=== PATIENT | male | born 1970 | race African-American/Black ===

== ENCOUNTER 2021-03-20 10:19 | Inpatient (IN) | payer OTHER ==
[~2021-03-20] VITALS: Ht 152.4 cm; Wt 136.1 kg
--- NOTE | ~2021-03-20 | EMS ---
[address] [address] EMS Patient Care Report Name: NAREN GONZALEZ Room #: 170-4 ADM IN M.R.#: [id number] Admission: 03/20/21 Attend Phys: Alicja Santoro MD Discharge: Date of : 72 Report #: [id number] THIS REPORT FOR: //name// Report Transmitted: 03/21/2021 14:51 EMS Care Summary [place], [place]/[facility] Incident [id number] @ 03/20/2021 09:52 Incident Location [address] [place] [id number] Patient JOSE GONZALEZ Male, 50 Years 1970 Patient Address Patient History None Reported, Patient Allergies No known allergies, Patient Medications None Reported, Chief Complaint Shortness of breath Disposition Transported No Lights/[place] Dispatch Reason Breathing Problem Transported To [facility] Narrative Arrived on scene to be greeted by our patient opening the front door. Patient stated he had been feeling sick and increasingly short of breath over the previous 7 days. Patient had called EMS due to his increased shortness of breath. Patient had a nonproductive cough. Patient denied any chest pain, n/v, or diarrhea. Patient stated coughing was painful. Patient tachypnic and speaking in 3-4 words sentences upon our arrival. Lung [address] [address] EMS Patient Care Report Name: NAREN GONZALEZ Room #: 170-4 [facility] IN [facility]#: [id number] Admission: 03/20/21 Attend Phys: Alicja Santoro MD Discharge: Date of : 72 Report #: [id number] sounds clear bilaterally. Patient's SPO2 75% on room air. NRB mask at 15lpm applied which was successful in raising patient's SPO2 to 98%. Patient transported and transferred to receiving facility without change in patient condition. Initial Vitals @10:02P: 113,SpO2: 73, @10:09P: 106,R: 22,BP: 150/68,Pain: 0/10,GCS: 15,CO: 4,SpO2: 98,Revised Trauma: 12, @10:02P: 114,R: 22,BP: 174/83,Pain: 0/10,SpO2: 76, Assessments @09:59MENTAL:Place Oriented,Event Oriented,Person Oriented,Time Oriented,SKIN:HEENT:Head/Face: No Abnormalities,Eyes: No Abnormalities,Neck/Airway: No Abnormalities,LUNG SOUNDS:ABDOMEN:PELVIS//GI:No Abnormalities,EXTREMITIES:Left Arm: No Abnormalities,Right Arm: No Abnormalities,Left Leg: No Abnormalities,Right Leg: No Abnormalities,PULSE:NEURO:No Abnormalities, Impression Shortness of breath Procedures @09:59 ALS Assessment Response: UnchangedSucceeded @10:03 Oxygen FlowRate: 15 Device: Non Re-breather Mask (NRB) Response: ImprovedSucceeded Timeline 09:47,Call Received 09:47,Dispatch Notified 09:52,Dispatched 09:52,En Route 09:57,On Scene 09:59,At Patient 09:59,ALS Assessment,Response: UnchangedSucceeded, 10:02,BP: / M,PULSE: 113,RR: R,SPO2: 73 Ox,ETCO2: ,BG: ,PAIN: ,GCS: , 10:02,BP: 174/83 M,PULSE: 114,RR: 22 R,SPO2: 76 Ox,ETCO2: ,BG: ,PAIN: 0,GCS: , 10:03,Oxygen FlowRate: 15 Device: Non Re-breather Mask (NRB) Response: ImprovedSucceeded, 10:04,Depart Scene 10:09,BP: 150/68 M,PULSE: 106,RR: 22 R,SPO2: 98 Ox,ETCO2: ,BG: ,PAIN: 0,GCS: 15, 10:16,At Destination 10:22,Call Closed [facility] [address] [place] [address] EMS Patient Care Report Name: NAREN GONZALEZ Room #: 170-4 ADM IN [facility].#: [id number] Admission: 03/20/21 Attend Phys: Alicja Snatoro MD Discharge: Date of : 72 Report #: [id number] Disclaimer v1.1 Copyright 2020 [employer] This EMS Care Summary contains data elements from the applicable legal record (which may be displayed differently). It is designed to provide pertinent information for the following purposes: continuity of care, clinical quality, and state data reporting. The complete legal record is available to ED staff and administrators of the receiving hospital in [facility]'s Patient Tracker. All data is provided "as is."
[2021-03-20 10:36] VITALS: BP 137/82
[2021-03-20 10:53] LABS: BASOPHILS 0.9 % (0.0-2.0); HEMATOCRIT 47.6 % (42.0-52.0); HEMOGLOBIN 16.1 gm/dL (14.0-18.0); LYMPHOCYTES 8.6 % (24.0-44.0); MCH 30.5 pg (26.0-34.0); MCHC 33.8 g/dL (28.0-37.0); MCV 90.3 fL (80.0-100.0); MONOCYTES 6.9 % (1.0-8.0); PLATELET COUNT 195 thou/uL (150-400); POLYS 83.6 % (36.0-66.0); RBC 5.27 mil/uL (4.50-6.00); RDW 13.4 % (10.5-14.5); WBC 7.2 thou/uL (4.0-11.0)
[2021-03-20 11:01] LABS: CALCIUM 8.5 mg/dL (8.5-10.1); CREATININE 1.6 mg/dL (0.7-1.3); POTASSIUM 3.8 mmol/L (3.5-5.1)
[2021-03-20 11:22] LABS: TOTAL BILIRUBIN 0.8 mg/dL (0.2-1.0); TOTAL PROTEIN 7.9 g/dL (6.4-8.2)
[2021-03-20 11:29] LABS: BE(vivo) 2.2 mmol/L (-2 to +3); HCO3 25.5 mmol/L (22.0-26.0); PCO2 36.3 mmHg (35.0-45.0); PO2 247.2 mmHg (80.0-100.0); pH 7.465 (7.360-7.450); sO2 99.6 % (92.0-98.0)
[2021-03-21 06:46] LABS: ABSOLUTE NEUTROPHILS 5.5 thou/uL (1.4-8.2); BASOPHILS 0.1 % (0.0-2.0); HEMATOCRIT 44.6 % (42.0-52.0); HEMOGLOBIN 14.9 gm/dL (14.0-18.0); LYMPHOCYTES 7.8 % (24.0-44.0); MCH 30.5 pg (26.0-34.0); MCHC 33.4 g/dL (28.0-37.0); MCV 91.3 fL (80.0-100.0); MONOCYTES 7.9 % (1.0-8.0); PLATELET COUNT 221 thou/uL (150-400); POLYS 84.2 % (36.0-66.0); RBC 4.89 mil/uL (4.50-6.00); RDW 13.2 % (10.5-14.5); WBC 6.5 thou/uL (4.0-11.0)
[2021-03-21 07:12] LABS: ALBUMIN 2.5 g/dL (3.4-5.0); CALCIUM 8.8 mg/dL (8.5-10.1); CREATININE 1.4 mg/dL (0.7-1.3); DIRECT BILIRUBIN 0.2 mg/dL (<0.1-0.2); POTASSIUM 4.1 mmol/L (3.5-5.1); TOTAL BILIRUBIN 0.5 mg/dL (0.2-1.0); TOTAL PROTEIN 7.2 g/dL (6.4-8.2)
[2021-03-21 07:13] LABS: INR 1.08; PROTIME 11.7 Seconds (10.5-12.1)
--- NOTE | 2021-03-21 07:30 | EKG ---
[address] [place] [address] ELECTROCARDIOGRAM REPORT Name: NAREN GONZALEZ Room #: 170-4 ADM IN M.R.#: [id number] Admission: 03/20/21 Attend Phys: Alicja Santoro MD Discharge: Date of : 72 Report #: [id number] [facility] ED Test Date: 2021-03-20 Test Time: 10:31:16 Pat Name: NAREN GONZALEZ Department: Room: 170 Gender: M Juvenile Officer: CARLOS : 1970 Requested By: Brady Hanson Order Number: [id number] MD: Sarabjit Resendez Measurements Intervals [place] Rate: 103 P: 39 MN: 134 QRS: -6 QRSD: 96 T: 2 QT: 328 QTc: 430 Interpretive Statements Sinus tachycardia Probable left atrial enlargement RSR' in V1 or V2, probably normal variant No previous ECG available for comparison Electronically Signed On 03-21-2021 7:29:48 RIPENING ROOM OPERATOR by Sarabjit Resendez [email or web address] <ELECTRONICALLY SIGNED> By: Sarabjit Resendez MD, [facility] 03/21/21 0729 1031 1031 Sarabjit Resendez MD, FACC /EPI
[2021-03-21 20:01] VITALS: BP 126/79
[2021-03-21 22:55] VITALS: BP 135/89
--- NOTE | 2021-03-22 00:04 | NUR ---
ADMIT PT ADMITTED TO ROOM 364 FROM ED WITH COVID PNEUMONIA. A/O X4. LUNGS CLEAR BUT DIMINISHED ON OPTIFLOW AT 50/54% FIO2 SATS IN MID 90'S. IV TO RAC INFUSING NS@75CC/HR AND REMDESIVIR INFUSING ORDERED. VOIDING PER URINAL ACCUCHECK 178. TELEMETRY INTACT READING SR WITH RATES IN 50'S TO 70'S. ORIENTED TO ROOM CALL LIGHT AND POC PT R/V UNDERSTANDING.
[2021-03-22 04:45] LABS: ALBUMIN 2.4 g/dL (3.4-5.0); CALCIUM 8.9 mg/dL (8.5-10.1); CREATININE 1.3 mg/dL (0.7-1.3); DIRECT BILIRUBIN 0.1 mg/dL (<0.1-0.2); PHOSPHORUS 3.8 mg/dL (2.5-4.9); POTASSIUM 4.4 mmol/L (3.5-5.1); TOTAL BILIRUBIN 0.4 mg/dL (0.2-1.0); TOTAL PROTEIN 6.8 g/dL (6.4-8.2)
[2021-03-22 05:08] LABS: ABSOLUTE NEUTROPHILS 7.1 thou/uL (1.4-8.2); BASOPHILS 0.3 % (0.0-2.0); HEMOGLOBIN 14.5 gm/dL (14.0-18.0); LYMPHOCYTES 6.6 % (24.0-44.0); MCH 30.8 pg (26.0-34.0); MCHC 33.6 g/dL (28.0-37.0); MCV 91.7 fL (80.0-100.0); MONOCYTES 9.2 % (1.0-8.0); PLATELET COUNT 260 thou/uL (150-400); POLYS 83.9 % (36.0-66.0); RBC 4.69 mil/uL (4.50-6.00); RDW 13.4 % (10.5-14.5); WBC 8.5 thou/uL (4.0-11.0)
[2021-03-22 07:56] VITALS: BP 128/83
[2021-03-22 10:07] LABS: HIV ANTIBODY Non Reactive (Non Reactive)
[2021-03-22 11:13] VITALS: BP 130/80
--- NOTE | 2021-03-22 11:19 | NUR ---
INITIAL ASSESSMENT: KWABENA reviewed chart and spoke with nursing and attending physician. Pt was admitted from home due to COVID pneumonia. Pt placed in Enhanced Isolation. Pt has not received a COVID vaccination. Pt is afebrile and requiring optiflow. Pt is on IV meds and Remdesivir. KWABENA placed call to pt's room. No answer. Pt does not currently have health insurance. [employer] has screened pt and will apply for [place] pt's behalf. KWABENA is following to assist as needed with discharge planning.
[2021-03-22 15:13] VITALS: BP 145/92
[2021-03-22 19:16] VITALS: BP 134/82
--- NOTE | 2021-03-22 23:58 | HC ---
[facility] [address] CONSULTATION Name: NAREN GONZALEZ Room #: 364-P [facility] IN M.R.#: [id number] Admission: 03/20/21 Attend Phys: Alicja Santoro MD Discharge: Date of : 72 Report #: [id number] THIS REPORT FOR: cc: NO FAMILY PHYSICIAN or PCP NO FAMILY PHYSICIAN or PCP Jose Morris MD ~ DATE OF SERVICE: 03/20/2021 INFECTIOUS DISEASES CONSULTATION REASON FOR CONSULTATION: I was asked to evaluate concerning COVID-19 pneumonia. HISTORY OF PRESENT ILLNESS: The patient is a 50-year-old, presents to the Emergency Room with a 1-week history of cough, congestion, and progressive shortness of breath. He has had fever, mild headache. No anosmia. No nausea, vomiting or diarrhea. He is not COVID vaccinated. He has had exposure to known COVID infected individual. He works driving a truck. No history of pneumonia, HIV, or tuberculosis. REVIEW OF SYSTEMS: A 14-point review as noted above. ALLERGIES: None known. MEDICATIONS: None prior to his admission. PAST MEDICAL HISTORY: Unremarkable. SOCIAL HISTORY: Nonsmoker. No significant alcohol intake. FAMILY HISTORY: Noncontributory. PHYSICAL EXAMINATION: VITAL SIGNS: Temperature of 39 degrees. He was on BiPAP 100%. GENERAL: He was diaphoretic. He was alert and cooperative, obese. No palpable adenopathy. SKIN: Without rash. LUNGS: Coarse breath sounds posteriorly. HEART: Regular, without murmur. ABDOMEN: Soft, obese, nontender, no hepatosplenomegaly or mass. EXTREMITIES: With no clubbing, cyanosis or edema. NEUROLOGIC: Cranial nerves intact. Strength in the upper and lower extremities was symmetric and within normal limits. PSYCHIATRIC: Mood without anxiety. LABORATORY DATA: Reviewed. [facility] [address] [place] [address] CONSULTATION Name: NAREN GONZALEZ Room #: 364-P [facility] IN [facility].#: [id number] Admission: 03/20/21 Attend Phys: Alicja Santoro MD Discharge: Date of : 72 Report #: [id number] MICROBIOLOGY: Reviewed. IMAGING: CT scan of the chest and chest x-ray reviewed. IMPRESSION: 1. COVID-19 pneumonia due to OUWT-vbuqjibylib-2. 2. Respiratory failure. 3. Acute kidney injury. 4. Mild transaminase elevation. RECOMMENDATION: Full ICU support. Continue with dexamethasone, remdesivir, and add baricitinib. We are out of Actemra. We will check full panel of laboratory studies, serial chest x-rays. I have discussed with the patient regarding plan of care. He was in agreement. Discussed with nursing staff regarding treatment plan. [place] here is high risk for intubation with increased mortality risk. <ELECTRONICALLY SIGNED> By: Jose Morris MD 03/22/21 2358 1625 49 Jose Morris MD /nt
--- NOTE | 2021-03-23 03:30 | NUR ---
PROGRESS PT A/O X4. UP AD GERI. VOIDING QS. VSS AFEBRILE. LUNGS CLEAR BUT DIMINISHED CONTINUES ON OPTIFLOW AT 45L/60%FIO2. PT REPORTS HE FEELS MUCH BETTER THIS SHIFT. ACCUCHECKS AND SSI CONTINUE. VOIDING QS AND HAD A LARGE BM TODAY. REMDESIVIR ADMINISTERED ORDERED, IVF'S INFUSING PER ORDER INTO RF IV. CONTINUE POC.
[2021-03-23 03:48] VITALS: BP 135/94
[2021-03-23 08:01] VITALS: BP 137/90
[2021-03-23 08:04] LABS: ALBUMIN 2.3 g/dL (3.4-5.0); CALCIUM 8.3 mg/dL (8.5-10.1); DIRECT BILIRUBIN 0.2 mg/dL (<0.1-0.2); PHOSPHORUS 3.2 mg/dL (2.5-4.9); POTASSIUM 3.8 mmol/L (3.5-5.1); TOTAL BILIRUBIN 0.5 mg/dL (0.2-1.0); TOTAL PROTEIN 6.2 g/dL (6.4-8.2)
[2021-03-23 11:44] VITALS: BP 126/78
--- NOTE | 2021-03-23 13:02 | NUR ---
KWABENA reviewed chart and spoke with nursing and attending physician. Pt remains in Enhanced Isolation due to COVID. Pt is afebrile and on optiflow. Pt is is on IV meds and Remdesivir. KWABENA spoke with pt via phone. Introduced role of SW. Pt is alert/orientated x 4. Pt reports that he lives at home alone. Prior to admission, pt was independent with ADLs. No use of DME. Pt does not currently have a PCP for follow up care. SW confirms that he does not have health insurance. [employer] is assisting pt with a Medicaid application. Therapy evals to be ordered when pt is able to participate. Plan is for pt to discharge home when medically stable. SW is following to assist as needed with discharge planning.
[2021-03-23 15:50] VITALS: BP 136/77
--- NOTE | 2021-03-23 18:32 | NUR ---
ASSUMED PATIENT CARE AT 0700. A/O X4. ON OPTIFLOAT 40L/60% TOLERTAED WELL. UP AD GERI, PROGRESSING TOWARDS POC GOALS.
[2021-03-23 20:00] VITALS: BP 123/81
[2021-03-24 00:03] VITALS: BP 118/73
[2021-03-24 04:08] VITALS: BP 125/86
--- NOTE | 2021-03-24 05:13 | NUR ---
ASSUMED CARE OF PT AROUND 1900. PT HAS REMAINED ON HIGH FLOW O2 OVERNIGHT SATING 98% AND ABOVE. EDUCATION PROVIDED ON THE BENEFITS OF PRONING- PT REPORTS BEING UNABLE TO LAY ON STOMACH DUE TO CHEST PAIN. INDEPENDENT IN RM. IV INFUSING, VVS, AFEBRILE. NO ACUTE EVENTS. WILL CONTINUE TO MONITOR AND FOLLOW PLAN OF CARE PT IS WILLING
[2021-03-24 07:21] LABS: ALBUMIN 2.3 g/dL (3.4-5.0); CALCIUM 8.3 mg/dL (8.5-10.1); CREATININE 0.9 mg/dL (0.7-1.3); DIRECT BILIRUBIN 0.1 mg/dL (<0.1-0.2); MAGNESIUM 1.7 mg/dL (1.8-2.4); PHOSPHORUS 4.1 mg/dL (2.5-4.9); POTASSIUM 3.7 mmol/L (3.5-5.1); TOTAL BILIRUBIN 0.3 mg/dL (0.2-1.0); TOTAL PROTEIN 5.8 g/dL (6.4-8.2)
[2021-03-24 08:00] VITALS: BP 117/77
[2021-03-24 09:30] LABS: T-SPOT.TB Negative
[2021-03-24 11:45] VITALS: BP 103/68
--- NOTE | 2021-03-24 12:10 | NUR ---
KWABENA reviewed chart and spoke with nursing and attending physician. Pt remains in Enhanced Isolation due to COVID. Pt is afebrile and on optiflow. Pt is on IV meds and Remdesivir. No weekend discharge planned. Therapy evals ordered today. Plan is for pt to discharge home when medically stable. [employer] has applied for [place]-Medicaid on pt's behalf. SW spoke with pt via phone. Provided update to pt regarding discharge timeframe. Pt verbalized understanding. KWABENA is following to assist as needed with discharge planning.
[2021-03-24 15:35] VITALS: BP 110/70
--- NOTE | 2021-03-24 19:33 | NUR ---
PROGRESSING TOWARDS POC GOALS.
[2021-03-24 20:30] VITALS: BP 138/88
[2021-03-24 22:55] LABS: HEMATOCRIT 38.7 % (42.0-52.0); HEMOGLOBIN 12.6 gm/dL (14.0-18.0); MCH 30.2 pg (26.0-34.0); MCHC 32.6 g/dL (28.0-37.0); MCV 92.7 fL (80.0-100.0); RBC 4.17 mil/uL (4.50-6.00); RDW 13.8 % (10.5-14.5); WBC 8.4 thou/uL (4.0-11.0)
[2021-03-25 03:55] LABS: ALBUMIN 2.3 g/dL (3.4-5.0); CALCIUM 8.2 mg/dL (8.5-10.1); MAGNESIUM 1.6 mg/dL (1.8-2.4); POTASSIUM 3.7 mmol/L (3.5-5.1); TOTAL BILIRUBIN 0.4 mg/dL (0.2-1.0); TOTAL PROTEIN 5.7 g/dL (6.4-8.2)
[2021-03-25 04:32] LABS: HEMATOCRIT 38.1 % (42.0-52.0); HEMOGLOBIN 12.7 gm/dL (14.0-18.0); MCH 30.6 pg (26.0-34.0); MCHC 33.4 g/dL (28.0-37.0); MCV 91.7 fL (80.0-100.0); PLATELET COUNT 300 thou/uL (150-400); RBC 4.16 mil/uL (4.50-6.00); RDW 13.7 % (10.5-14.5); WBC 8.2 thou/uL (4.0-11.0)
[2021-03-25 04:53] LABS: D-DIMER 10.36 ug/mLFEU (0.19-0.50); INR 1.16; PROTIME 12.6 Seconds (10.5-12.1)
--- NOTE | 2021-03-25 05:23 | NUR ---
PT IS PROGRESSING TOWARD GOALS. PT IS A&OX4 AND ABLE TO COMMUNICATE WANTS AND NEEDS TO STAFF. PT BEGAN THE SHIFT ON OPTIFLOW 30L/35%. HAS BEEN ABLE TO BE TITRATED DOWN THROUGHOUT THE NIGHT PER RT AND NURSING, CURRENTLY ON 3L NC MAINTAINING O2 SAT >95%. PT WENT FOR CT OF ABDOMEN THIS SHIFT PER ORDERS FROM INFECTIOUS DISEASE. LOVENOX HAS BEEN PLACED ON HOLD D/T CONCERN FOR ABDOMINAL RECTUS BLEED. CT SCAN SHOWED A HEMATOMA, BUT WITHOUT DIFINITIVE EVIDENCE OF BLEEDING. PT WITH INCREASE IN ABDOMINAL PAIN SINCE RETURNING FROM CT SCAN. RECEIVED 1X ORDER FOR NORCO PER TAXATION INSPECTOR DIRECTOR PHYSICAL, ROUNDING PHYSICIAN TO REEVALUATE PAIN IN THE AM. WILL CONTINUE TO OBSERVE FOR CHANGES
[2021-03-25 05:29] LABS: ABSOLUTE NEUTROPHILS 5.8 thou/uL (1.4-8.2); ATYPICAL LYMPHS 1 %; METAMYELOCYTES 3 %; NUCLEATED RBCS 1 /100WBC
[2021-03-25 06:00] VITALS: BP 121/77
[2021-03-25 07:17] VITALS: BP 118/77
--- NOTE | 2021-03-25 11:40 | NUR ---
ORDERS FOR EVAL AND TREAT. OBSERVED Pt STAND AND AMBULATE IN ROOM WITHOUT DIFFICULTY. SPOKE WITH Pt WHO STATES HE IS HAVING NO DIFFICULTY WITH HIS MOBILITY AND BALANCE. Pt IS DECLINING A FORMAL P.T. EVAL BUT APPEARS SAFE FOR HOME WHEN MEDICALLY CLEAR. O.T. HAD EVALUATED THIS Pt AND WERE SIGNING OFF ON HIM.
[2021-03-25 11:57] VITALS: BP 129/78
--- NOTE | 2021-03-25 12:15 | NUR ---
Pt triggered for high MBI, 58.6, extreme class II obesity. Admitted with covid+, remains on enhanced isolation precautions. Unable to connect with pt via phone to assess for education needs. Eating well, O2 able to be titrated from 20L optiflow down to 3L NC in fairly short time. Progressing well. Abd Low nutrition risk at this time. Follow up for education needs.
--- NOTE | 2021-03-25 17:03 | NUR ---
ASSUMED PT CARE THIS AM. PT IS ALERT & ORIENTED X4. PT HAS IV SITE ON RAC. PT HAS TELE MONITOR. PT TOLERATED DIET AND MEDICATION WELL. PT C/O OF PAIN AND GIVEN AND ORDERED PAIN MEDICATION PER PT REQUEST. INFORMED HOSPITALIST ABOUT CT ABDOMEN RESULTS THIS AM AND PER HOSPITALIST HOLD BLOOD THINNER. PT IS ON THE CHAIR WITH CALL LIGHT WITHIN REACH. WILL CONTINUE TO MONITOR PT. FOLLOW POC.
[2021-03-26 02:42] VITALS: BP 104/69
--- NOTE | 2021-03-26 04:36 | NUR ---
PT IS PROGRESSING TOWARD GOAL OF DISCHARGE. HE HAS BEEN TITRATED DOWN TO 2L O2 PER NASAL CANULA, MAINTAINING O2 SATS >94%. CONTINUES TO HAVE COMPLAINS OF ABDOMINAL PAIN, ALLEVIATED WITH PRN NORCO. PT IS A&OX4, VSS. WILL CONTINUE TO OBSERVE FOR CHANGES
[2021-03-26 05:23] LABS: ALBUMIN 2.5 g/dL (3.4-5.0); CALCIUM 8.4 mg/dL (8.5-10.1); MAGNESIUM 2.4 mg/dL (1.8-2.4); POTASSIUM 4.4 mmol/L (3.5-5.1); TOTAL BILIRUBIN 0.4 mg/dL (0.2-1.0); TOTAL PROTEIN 5.5 g/dL (6.4-8.2)
[2021-03-26 09:05] VITALS: BP 129/74
[2021-03-26] MEDS ORDERED: PREDNISONE 10 M10 M1 PO (16:41)
[2021-03-26 16:44] VITALS: BP 129/74
--- NOTE | 2021-03-26 17:45 | NUR ---
ASSUMED PATIENT CARE AT 0700. A/O X4. ON RA 95%. AMBULATED IN ROOM. NO SOB NOTED. PROGRESSING TOWARDS POC GOALS. DC TO HOME.
== END 2021-03-26 18:13 | disposition home or self-care (01) | DRG 177 ==
LOC: ER 10:19 → EROBS 15:10 → 3W 03-21 21:48
PROVIDERS: Emergency Medicine; Internal Medicine; Nurse Practitioner; Specialist; ADMIT Hospitalist; ATTEND Hospitalist
PROC: 5A09357 Assistance with Respiratory Ventilation, Less than 24 Consecutive Hours, Continuous Positive Airway Pressure (ICD-10-PCS; principal; 2021-03-20)
PROC: 5A0945A Assistance with Respiratory Ventilation, 24-96 Consecutive Hours, High Flow/Velocity Cannula (ICD-10-PCS; 2021-03-21)
DX: U07.1 COVID-19 (principal); J12.82 Pneumonia due to coronavirus disease 2019; J80 Acute respiratory distress syndrome; N17.9 Acute kidney failure, unspecified; Z68.43 Body mass index [BMI] 50.0-59.9, adult; E44.0 Moderate protein-calorie malnutrition; S36.62XA Contusion of rectum, initial encounter; E66.01 Morbid (severe) obesity due to excess calories; R74.01 Elevation of levels of liver transaminase levels; E66.9 Obesity, unspecified; D64.9 Anemia, unspecified; X58.XXXA Exposure to other specified factors, initial encounter; Y93.89 Activity, other specified; Y92.89 Other specified places as the place of occurrence of the external cause; Y99.8 Other external cause status
CPT/HCPCS: 10779; 10879